=== PATIENT | male | born 1950 | race Two or more races ===

== ENCOUNTER 2022-10-26 11:27 | Inpatient (IN) | payer OTHER ==
[~2022-10-26] VITALS: Ht 170.2 cm; Wt 98.9 kg
[2022-10-26] MEDS ORDERED: GLUMETZA500 MG PO (13:43)
[2022-10-26] MEDS ORDERED: HYDROCHLOROTHIA25 MG PO (13:44)
[2022-10-26] MEDS ORDERED: ENALAPRIL MALEAT5 MG PO (13:44)
[2022-10-26] MEDS ORDERED: GLIPIZIDE XL2.5 MG PO (13:44)
[2022-10-26] MEDS ORDERED: TOPROL XL25 M1 PO (13:45)
[2022-10-26] MEDS ORDERED: CRESTOR20 MG PO (13:45)
[2022-10-26] MEDS ORDERED: ADULT LOW DOSE81 M1 PO (13:45)
[2022-10-26] MEDS ORDERED: CARAF PO (13:46)
[2022-10-26] MEDS ORDERED: PROTONIX20 MG PO (13:46)
[2022-10-26] MEDS ORDERED: VITAMIN C100 MG PO (13:46)
[2022-11-03] MEDS ORDERED: SUCRALFATE1 GM (11:41)
[2022-11-03] MEDS ORDERED: ALLOPURINOL300 MG (11:41)
[2022-11-03] MEDS ORDERED: LOPRESSOR25 MG (11:41)
[2022-11-03] MEDS ORDERED: VENTOLIN HFA18 GM (11:42)
[2022-11-04] MEDS ORDERED: ACETAMINOPHEN500 M2 PO (13:13)
[2022-11-04] MEDS ORDERED: INTESTINEX680 M1 PO (13:13)
== END 2022-11-04 14:59 | disposition home or self-care (01) | DRG 331 ==
LOC: O/R 11-01 06:19 → SURH 11-01 06:19
PROVIDERS: ADMIT Surgery; ATTEND Surgery
PROC: 0DTN4ZZ Resection of Sigmoid Colon, Percutaneous Endoscopic Approach (ICD-10-PCS; 2022-11-01)
PROC: 0DJD8ZZ Inspection of Lower Intestinal Tract, Via Natural or Artificial Opening Endoscopic (ICD-10-PCS; principal; 2022-11-01 07:00)
DX: K57.32 Diverticulitis of large intestine without perforation or abscess without bleeding (principal); E11.9 Type 2 diabetes mellitus without complications; Z79.4 Long term (current) use of insulin; I11.9 Hypertensive heart disease without heart failure